=== PATIENT | male | born 1970 | race Two or more races ===

== ENCOUNTER 2023-01-08 16:40 | Inpatient (IN) | payer MEDICARE, MEDICAID ==
[2023-01-08 18:17] LABS: Amphetamine Screen,Urine Not Detected (NotDetected); Barbiturate Screen,Urine Not Detected (NotDetected); Benzodiazepines Screen,Urine Not Detected (NotDetected); Cocaine Screen,Urine Not Detected (NotDetected); Methadone Screen, Urine Not Detected (NotDetected); Opiate Screen,Urine Not Detected (NotDetected); Oxycodone Screen, Urine Not Detected (NotDetected); Phencyclidine Screen,Urine Not Detected (NotDetected); Tricyclic Antidepressant,Urine Not Detected (NotDetected); Urn Cannabinoid Scrn Detected (NotDetected)
--- NOTE | 2023-01-08 19:05 | ED ---
General Adult HPI - General Chief complaint: Anxiety Stated complaint: Mental health Time Seen by Provider: 01/08/23 16:51 Source: patient Mode of arrival: ambulatory Limitations: no limitations - History of Present Illness Initial comments: 52-year-old male presenting with chief complaint of anxiety. Patient very clearly has delusional thinking. He tells me that he has a tolerance and a member of a royal family. 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 He denies any suicidal or homicidal ideation. He is generally well-appearing and showing no signs of distress. - Related Data Allergies Allergy/AdvReac Type Severity Reaction Status Date / Time No Known Allergies Allergy Verified 01/08/23 16:43 Review of Systems ROS Statement: Those systems with pertinent positive or pertinent negative responses have been documented in the HPI. ROS Other: All systems not noted in ROS Statement are negative. Past Medical History Past Medical History: Asthma History of Any Multi-Drug Resistant Organisms: None Reported Past Surgical History: No Surgical Hx Reported Past Psychological History: Anxiety, Depression Smoking Status: Current every day smoker Past Alcohol Use History: None Reported Past Drug Use History: None Reported General Exam Limitations: no limitations General appearance: alert, in no apparent distress Head exam: Present: atraumatic, normocephalic, normal inspection Eye exam: Present: normal appearance, EOMI Neck exam: Present: normal inspection, full ROM Respiratory exam: Present: normal lung sounds bilaterally. Absent: respiratory distress, wheezes, rales, rhonchi, stridor Cardiovascular Exam: Present: regular rate, normal rhythm, normal heart sounds. Absent: systolic murmur, diastolic murmur, rubs, gallop, clicks Neurological exam: Present: alert, oriented X3 Psychiatric exam: Absent: homicidal ideation, suicidal ideation Expanded Focused psych exam: Present: delusional, flight of ideas Skin exam: Present: warm, dry, intact, normal color. Absent: rash Course Vital Signs 01/08/23 01/08/23 01/08/23 16:43 17:17 18:23 Temperature 98.3 F 97.5 F L 98.4 F Pulse Rate 121 H 101 H 92 Respiratory 18 18 18 Rate Blood Pressure 151/90 128/73 128/70 O2 Sat by Pulse 97 97 97 Oximetry Medical Decision Making - Medical Decision Making Was pt. sent in by a medical professional or institution ([facility], [facility], urgent care, hospital, or correction...) When possible be specific @ -No Did you speak to anyone other than the patient for history (EMS, parent, family, police, friend...)? What history was obtained from this source @ -No Did you review nursing and triage notes (agree or disagree)? Why? @ -I reviewed and agree with nursing and triage notes Were old charts reviewed (outside hosp., previous admission, EMS record, old EKG, old radiological studies, urgent care reports/EKG's, correction records)? Report findings @ -No old charts were reviewed Differential Diagnosis (chest pain, altered mental status, abdominal pain women, abdominal pain men, vaginal bleeding, weakness, fever, dyspnea, syncope, headache, dizziness, GI bleed, back pain, seizure, CVA, palpatations, mental health, musculoskeletal)? @ -Differential Mental Health Depression, anxiety, bipolar, psychosis, schizophrenia, borderline personality, situational depression, adjustment disorder, behavioral disorder, brain tumor, malingering, substance abuse, encephalopathy, medication reaction, dementia, h ypothyroidism, degenerative neurologic disorder, lupus.... This is not meant to be all-inclusive list EKG interpreted by me (3pts min.). @ -As above X-rays interpreted by me (1pt min.). @ -None done CT interpreted by me (1pt min.). @ -None done U/S interpreted by me (1pt. min.). @ -None done What testing was considered but not performed or refused? (CT, X-rays, U/S, labs)? Why? @ -None What meds were considered but not given or refused? Why? @ -None Did you discuss the management of the patient with other professionals (professionals i.e. [facility], [facility], lab, RT, psych nurse, case management social worker, material coordinator, teacher, community development officer, adult protective caseworker)? Give summary @ -No Was smoking cessation discussed for >3mins.? @ -No Was critical care preformed (if so, how long)? @ -No Were there social determinants of health that impacted care today? How? (H omelessness, low income, unemployed, alcoholism, drug addiction, transportation, low edu. Level, literacy, decrease access to med. care, shelter, rehab)? @ -No Was there de-escalation of care discussed even if they declined (Discuss DNR or withdrawal of care, Hospice)? DNR status @ -No What co-morbidities impacted this encounter? (DM, HTN, Smoking, COPD, CAD, Cancer, CVA, ARF, Chemo, Hep., AIDS, mental health diagnosis, sleep apnea, morbid obesity)? @ -None Was patient admitted / discharged? Hospital course, mention meds given and route, prescriptions, significant lab abnormalities, going to OR and other pertinent info. @ -52-year-old male presenting with chief complaint of anxiety. While obtaining the history and physical exam patient is very clearly delusional. He is evaluated by EPS who determined that he meets criteria for inpatient treatment. My attending is Dr. Lorenzo Undiagnosed new problem with uncertain prognosis? @ -No Drug Therapy requiring intensive monitoring for toxicity (Heparin, Nitro, Insulin, Cardizem)? @ -No Were any procedures done? @ -No Diagnosis/symptom? @ -Delusional thinking Acute, or Chronic, or Acute on Chronic? @ -Acute Uncomplicated (without systemic symptoms) or Complicated (systemic symptoms)? @ -Complicated Side effects of treatment? @ -No Exacerbation, Progression, or Severe Exacerbation? @ -No Poses a threat to life or bodily function? How? (Chest pain, [place], [place], pneumonia, PE, COPD, DKA, ARF, appy, cholecystitis, CVA, Diverticulitis, Homicidal, Suicidal, threat to staff... and all critical care pts) @ -Yes - Lab Data Lab Results 01/08/23 Range/Units 17:15 Urine Opiates Screen Not Detected (NotDetected) Ur Oxycodone Screen Not Detected (NotDetected) Urine Methadone Screen Not Detected (NotDetected) Ur Propoxyphene Screen Not Detected (NotDetected) Ur Barbiturates Screen Not Detected (NotDetected) U Tricyclic Antidepress Not Detected (NotDetected) Ur Phencyclidine Scrn Not Detected (NotDetected) Ur Amphetamines Screen Not Detected (NotDetected) U Methamphetamines Scrn Not Detected (NotDetected) U Benzodiazepines Scrn Not Detected (NotDetected) Urine Cocaine Screen Not Detected (NotDetected) U Marijuana (THC) Screen Detected H (NotDetected) Disposition Clinical Impression: Delusion, Hallucinations Disposition: ADMITTED IP TO THIS HOSP Condition: Stable Instructions (If sedation given, give patient instructions): Generalized Anxiety Disorder (ED) Referrals: None,Stated [Primary Care Provider] - 1-2 days Time of Disposition: 19:04
[2023-01-08 20:06] LABS: Appearance,Urine Turbid (Clear); Bilirubin,Urine Negative (Negative); Blood,Urine Negative (Negative); Color,Urine Yellow; Glucose,Urine (UA) Negative (Negative); Ketones,Urine Negative (Negative); Leukocyte Esterase,Urine Moderate (Negative); Nitrite,Urine Negative (Negative); Protein,Urine Trace (Negative); Specific Gravity,Urine 1.033 (1.001-1.035)
[2023-01-08 20:08] LABS: RBC,Urine 0 /hpf (0-5); WBC,Urine 3 /hpf (0-5)
[2023-01-08] MEDS ORDERED: NICOTINE 21MG/24HR PATCH TRANSDERM STA (20:15)
[2023-01-08 20:33] LABS: HCT 41.4 % (39.0-53.0); HGB 14.2 gm/dL (13.0-17.5); MCH 30.7 pg (25.0-35.0); MCHC 34.4 g/dL (31.0-37.0); MCV 89.3 fL (80.0-100.0); Mean Platelet Volume 10.3; Platelet Count 211 k/uL (150-450); RBC 4.64 m/uL (4.30-5.90); RDW 14.7 % (11.5-15.5)
[2023-01-08 21:11] LABS: ALT 17 U/L (4-49); AST 20 U/L (17-59); African American GFR (CKD) >90 (>60 ml/min/1.73 sqM); Albumin 3.8 g/dL (3.5-5.0); Alkaline Phosphatase 101 U/L (38-126); Anion Gap 9 mmol/L; Blood Urea Nitrogen 18 mg/dL (9-20); Carbon Dioxide 24 mmol/L (22-30); Chloride 106 mmol/L (98-107); Glucose 120 mg/dL (74-99); Non-African American GFR(CKD) 90 (>60 ml/min/1.73 sqM); Potassium 4.2 mmol/L (3.5-5.1); Sodium 139 mmol/L (137-145); Total Bilirubin 0.3 mg/dL (0.2-1.3); Total Protein 6.7 g/dL (6.3-8.2)
[2023-01-09] MEDS ORDERED: ACETAMINOPHEN TAB 325 MG TAB PO PRN (14:01)
[2023-01-09] MEDS ORDERED: LORazepam 1 MG TAB PO PRN (14:01)
[2023-01-09] MEDS ORDERED: haloperidoL 5 MG TAB PO PRN (14:01)
[2023-01-09] MEDS ORDERED: MAGNESIUM HYDROXIDE 2,400 MG/30 ML CUP PO PRN (14:01)
[2023-01-09] MEDS ORDERED: MAG HYDROX/AL HYDROX/SIMETH 30 ML CUP PO PRN (14:01)
[2023-01-09] MEDS ORDERED: HALOPERIDOL LACTATE 5 MG/ML 1 ML VIAL IM PRN (14:59)
[2023-01-09] MEDS ORDERED: LORazepam 2 MG/ML INJ IM PRN (15:00)
[2023-01-09] MEDS: BACITRACIN OINT 1 EACH PACKET TOPICAL SCH ×2 (18:44→20:34)
[2023-01-09] MEDS ORDERED: risperiDONE 1 MG TAB PO SCH (21:00)
--- NOTE | 2023-01-10 05:16 | P.CONS ---
History of Present Illness - Reason for Consult Consult date: 01/10/23 - History of Present Illness The patient is a 52-year-old homeless male who had presented to the emergency room with psychosis. The patient reportedly making statements that he was related to Juan Hurley and that he was a member of the family working on his knee problem. He was admitted to the mental health unit where he was seen and evaluated. Patient reports feeling well at the time of interview and had no physical complaints. He reports smoking 1 pack of cigarettes daily but denied substance or alcohol use. Denied experiencing chest discomfort or shortness of, fever, chills, cough, nausea, vomiting, abdominal pain, diarrhea. Review of systems: Pertinent positives and negatives as discussed in HPI, a complete review of systems was performed and all other systems are negative. Physical examination: General: non toxic, no distress, appears at stated age, normal weight Derm: no unusual rashes/lesions, no unusual ecchymoses, warm, dry Head: atraumatic, normocephalic, symmetric Eyes: EOMI, no lid lag, anicteric sclera ENT: Nose and ears atraumatic, no thrush, no pharyngeal erythema Neck: trachea midline, supple Mouth: no lip lesion, mucus membranes moist Cardiovascular: S1S2 reg, no murmur, no edema Lungs: CTA bilateral, no rhonchi, no rales , no accessory muscle use Abdominal: soft, nontender to palpation, no guarding Ext: no gross muscle atrophy, no contractures, Neuro: No gross focal neuro deficits noted Psych: Alert, oriented, appropriate affect Assessment: Marijuana abuse Tobacco abuse Psychosis Imaging: None performed Data Review: Laboratory evaluation revealed urine tox positive for marijuana Plan: Advised on importance of cessation Defer management of psychosis to primary psychiatry service Thank you for allowing us to participate in the care of this patient. We will follow peripherally. Do not hesitate to contact us with questions. Someone can be reached from the [facility] hospitalist group at all hours of the day at [phone]. Past Medical History Past Medical History: Asthma History of Any Multi-Drug Resistant Organisms: None Reported Past Surgical History: No Surgical Hx Reported Past Psychological History: Anxiety, Depression Smoking Status: Current every day smoker Past Alcohol Use History: None Reported Past Drug Use History: None Reported Medications and Allergies Home Medications Medication Instructions Recorded Confirmed Type Sertraline [Zoloft] 100 mg PO DAILY 01/08/23 01/08/23 History risperiDONE 3 mg PO DAILY 01/08/23 01/08/23 History Allergies Allergy/AdvReac Type Severity Reaction Status Date / Time No Known Allergies Allergy Verified 01/08/23 20:16 Physical Exam Vitals: Vital Signs Temp Pulse Pulse Resp BP BP Pulse Ox 01/10/23 01:35 97.1 F L 75 12 118/72 01/09/23 15:01 97.7 F 81 16 133/64 96 01/09/23 08:11 98.2 F 81 16 114/71 98 Intake and Output 01/09/23 01/09/23 01/10/23 14:59 22:59 06:59 Other: Weight 61.235 kg Results CBC & Chem 7: 01/08/23 19:58 01/08/23 19:58
[2023-01-10] MEDS: SERTRALINE 100 MG TAB PO SCH (08:36)
[2023-01-10] MEDS: BACITRACIN OINT 1 EACH PACKET TOPICAL SCH ×2 (08:36→20:06)
[2023-01-10] MEDS: NICOTINE 21MG/24HR PATCH TRANSDERM SCH (08:36)
[2023-01-10 09:48] LABS: Chol/HDL Ratio 4.75 Ratio; LDL Cholesterol,Calculated 113.3 mg/dL (0.0-131.0)
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
[2023-01-10 13:19] VITALS: BMI 21.1
[2023-01-10] MEDS: MIRTAZAPINE 15 MG TAB PO SCH (20:06)
[2023-01-10] MEDS: PALIPERIDONE 3 MG TAB.ER.24 PO SCH (20:06)
[2023-01-11] MEDS: NICOTINE 21MG/24HR PATCH TRANSDERM SCH (09:54)
[2023-01-11] MEDS: BACITRACIN OINT 1 EACH PACKET TOPICAL SCH ×2 (09:54→20:37)
[2023-01-11] MEDS: SERTRALINE 100 MG TAB PO SCH (10:04)
--- NOTE | 2023-01-11 11:31 | P.PN ---
Progress Note - Text Progress Note Date: 01/11/23 Interval History: Patient was seen wandering the hallways and was directable and agreeable to speak with development writer in the office. [Patient claims that his medication is 'really helping him" and that he slept very well at night. Patient claims that he is eating well, and has been going to groups..Patient admits to needing help with his mental stability. No complaints with adverse reactions of medication. At this time patient denies any suicidal or homical ideations, intent or plan. Patient denies any auditory, visual hallucinations and denies any paranoia or delusions. Patient denies any side effects from the medications and has been compliant with meds. we spoke about his senior trial attorney coming today to do the deferral with him. Mental Status Exam: General Appearance: Patient appears to be short in stature, older than stated age, is alert, directable, and attempts to cooperate. Patient appears to have poor hygiene and grooming, improving.. Behavior: Patient is calmly seated without any agitated behavior, cooperative. Timid. mildly improving. Speech: Patient's speech is fluent and nonpressured. Mood/Affect: Mood is improving mildly, patient claims that he feels good,, affect is congruent and constricted. mildly improving Suicidality/Homicidality: Patient denies having any suicidal or homicidal ideation intent or plan. Perceptions: Patient denies any visual hallucinations and denies any auditory hallucinations Though content/process: There is no evidence of any delusional thought content and thought process is linear and goal-directed. Rambles at times, mildly improving. Memory and concentration: AOX3, grossly intact for the purposes of this session Judgment and insight: Poor, improving Assessment Schizophrenia Intellectual disability Cannabis use disorder Nicotine dependence Plan: -Patient continues to meet criteria for inpatient psychiatric admission for symptom stabilization and safety. Patient has not signed adult voluntary form and, medication consent and is placed in patient's chart. A second certification was completed and along with petition has been filed for court. Social Problems Specialist will meet with patient today, 01/11, to defer. -Medications: Invega 3mg qhs for psychosis/delusions, Remeron 15mg qhs insomnia and mood, Zoloft 100mg qd for anxiety and mood -When necessary Ativan and Haldol for agitation/aggression. -NRT - [nicotine patch]-Patient was counselled on substance abuse and desired to cut back on use -Patient was informed of the risks, benefits and side effects of the medication and patient verbally consented to taking the medications. Patient signed med consent form and was placed in chart -SW on board for discharge planning. Encouraged the patient to participate in milieu. Currently awaiting deferral with senior trial attorney today. Likely discharge Monday, 01/13 if patient continues to improve.
[2023-01-11] MEDS: PALIPERIDONE 3 MG TAB.ER.24 PO SCH (20:37)
[2023-01-11] MEDS: MIRTAZAPINE 15 MG TAB PO SCH (20:37)
[2023-01-12] MEDS: NICOTINE 21MG/24HR PATCH TRANSDERM SCH (08:32)
[2023-01-12] MEDS: BACITRACIN OINT 1 EACH PACKET TOPICAL SCH ×2 (08:32→20:17)
[2023-01-12] MEDS: SERTRALINE 100 MG TAB PO SCH (08:33)
--- NOTE | 2023-01-12 10:05 | P.PN ---
Progress Note - Text Progress Note Date: 01/12/23 Interval History: Patient was seen wandering the hallways and was directable and agreeable to speak with tag writer in the office. Patient claims that his medication is 'really helping him" and that he slept "wonderful". Patient claims that he is eating well, and has been going to groups. He feels talking to other patients are really good for him. Patient no longer feels afraid, and is feeling comfortable. No complaints with adverse reactions of medication. At this time patient denies any suicidal or homical ideations, intent or plan. Patient denies any auditory, visual hallucinations and denies any paranoia or delusions. Patient denies any side effects from the medications and has been compliant with meds. Patient deferred with his civil rights attorney. Mental Status Exam: General Appearance: Patient appears to be short in stature, older than stated age, is alert, directable, and attempts to cooperate. Patient appears to have improving hygiene and grooming. Behavior: Patient is calmly seated without any agitated behavior, timid, cooperative.mildly improving. Speech: Patient's speech is fluent and nonpressured. Mood/Affect: Mood is improving mildly, patient claims that he feels good,, affect is congruent and constricted. improving Suicidality/Homicidality: Patient denies having any suicidal or homicidal ideation intent or plan. Perceptions: Patient denies any visual hallucinations and denies any auditory hallucinations Though content/process: There is no evidence of any delusional thought content and thought process is linear and goal-directed. mildly improving. Memory and concentration: AOX3, grossly intact for the purposes of this session Judgment and insight: Poor, improving Assessment Schizophrenia Intellectual disability Cannabis use disorder Nicotine dependence Plan: -Patient continues to meet criteria for inpatient psychiatric admission for symptom stabilization and safety. Patient has not signed adult voluntary form and, medication consent and is placed in patient's chart. A second certification was completed and along with petition has been filed for court. Patient deferred with his civil rights attorney, 01/11 -Medications: Invega 3mg qhs for psychosis/delusions, Remeron 15mg qhs insomnia and mood, decrease Zoloft 50mg qd for anxiety and mood -When necessary Ativan and Haldol for agitation/aggression. -NRT - [nicotine patch]-Patient was counselled on substance abuse and desired to cut back on use -Patient was informed of the risks, benefits and side effects of the medication and patient verbally consented to taking the medications. Patient signed med consent form and was placed in chart -SW on board for discharge planning. Encouraged the patient to participate in milieu. Patient signed a deferral with his civil rights attorney 01/11. Likely discharge Monday, 01/13 if patient continues to improve.
[2023-01-12] MEDS: PALIPERIDONE 3 MG TAB.ER.24 PO SCH (20:17)
[2023-01-12] MEDS: MIRTAZAPINE 15 MG TAB PO SCH (20:17)
[2023-01-13 06:39] VITALS: BP 118/68; PULSE 77; RESP 13; TEMP 97.4
[2023-01-13] MEDS: BACITRACIN OINT 1 EACH PACKET TOPICAL SCH (08:24)
[2023-01-13] MEDS: NICOTINE 21MG/24HR PATCH TRANSDERM SCH (08:24)
[2023-01-13] MEDS ORDERED: SERTRALINE 50 MG TAB PO SCH (09:00)
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
== END 2023-01-13 12:21 | disposition home or self-care (01) | DRG 885 ==
LOC: EC 16:40 → 3MHU 01-09 13:59
PROVIDERS: ADMIT Psychiatry & Neurology Psychiatry; ATTEND Psychiatry & Neurology Psychiatry
DX: F20.9 Schizophrenia, unspecified (principal); F79 Unspecified intellectual disabilities; F12.10 Cannabis abuse, uncomplicated; Z11.52 Encounter for screening for COVID-19; Z28.310 Unvaccinated for COVID-19; G47.00 Insomnia, unspecified; F41.9 Anxiety disorder, unspecified; F32.A Depression, unspecified; F17.210 Nicotine dependence, cigarettes, uncomplicated; Z91.148 Patient's other noncompliance with medication regimen for other reason; Z91.199 Patient's noncompliance with other medical treatment and regimen due to unspecified reason; Z71.6 Tobacco abuse counseling; Z79.899 Other long term (current) drug therapy; T74.21XS Adult sexual abuse, confirmed, sequela; Z81.8 Family history of other mental and behavioral disorders
CPT/HCPCS: 36415; 80053; 80061; 80306; 81001; 82075; 83036; 84443; 85027; 87635; 99285

== ENCOUNTER 2023-01-19 13:58 | Emergency (ER) | payer MEDICARE, OTHER ==
[2023-01-19 14:12] VITALS: TEMP 98.1
--- NOTE | 2023-01-19 15:38 | ED ---
General Adult HPI - General Chief complaint: Altered Mental Status Stated complaint: AMS Time Seen by Provider: 01/19/23 13:59 Source: patient, EMS, RN notes reviewed, old records reviewed Mode of arrival: EMS Limitations: no limitations, altered mental status - History of Present Illness Initial comments: 52-year-old male presenting for mental health evaluation. Patient stating that he is stressed and anxious. He states that he is currently living with his sister. He states that he is scheduled to perform in a and believes this is the cause of the stress. He denies suicidal or homicidal thoughts. He did report to EMS that he feels somewhat confused at times but he is alert and oriented to time my evaluation.a - Related Data Previous Rx's Medication Instructions Recorded Mirtazapine [Remeron] 15 mg PO HS 30 Days #30 tab 01/13/23 Nicotine 21Mg/24Hr Patch [Habitrol] 1 patch TRANSDERM DAILY 14 Days 01/13/23 #14 patch Paliperidone [Invega] 3 mg PO HS 30 Days #30 tab 01/13/23 Sertraline [Zoloft] 50 mg PO DAILY 30 Days #30 tab 01/13/23 Allergies Allergy/AdvReac Type Severity Reaction Status Date / Time No Known Allergies Allergy Verified 01/19/23 14:11 Review of Systems ROS Statement: Those systems with pertinent positive or pertinent negative responses have been documented in the HPI. ROS Other: All systems not noted in ROS Statement are negative. Past Medical History Past Medical History: Asthma History of Any Multi-Drug Resistant Organisms: None Reported Past Surgical History: No Surgical Hx Reported Past Psychological History: Anxiety, Depression Smoking Status: Current every day smoker Past Alcohol Use History: None Reported Past Drug Use History: None Reported General Exam Limitations: no limitations, altered mental status General appearance: alert, anxious Head exam: Present: atraumatic, normocephalic Eye exam: Present: normal appearance, PERRL ENT exam: Present: normal exam Respiratory exam: Present: normal lung sounds bilaterally. Absent: respiratory distress, wheezes Cardiovascular Exam: Present: regular rate, normal rhythm GI/Abdominal exam: Present: soft. Absent: distended Extremities exam: Present: normal inspection Neurological exam: Present: alert, oriented X3, CN II-XII intact. Absent: motor sensory deficit Psychiatric exam: Present: depressed, anxious Skin exam: Present: warm, dry, intact Course Vital Signs 01/19/23 01/19/23 14:03 16:34 Temperature 98.1 F Pulse Rate 100 82 Respiratory 18 20 Rate Blood Pressure 123/71 116/74 O2 Sat by Pulse 97 99 Oximetry Medical Decision Making - Medical Decision Making Was pt. sent in by a medical professional or institution (, DEB, AUTOMOTIVE SERVICE MANAGEMENT TEACHER, urgent care, hospital, or half-way...) When possible be specific @ -No Did you speak to anyone other than the patient for history (EMS, parent, family, police, friend...)? What history was obtained from this source @ -No Did you review nursing and triage notes (agree or disagree)? Why? @ -I reviewed and agree with nursing and triage notes Were old charts reviewed (outside hosp., previous admission, EMS record, old EKG, old radiological studies, urgent care reports/EKG's, half-way records)? Report findings @ -No old charts were reviewed Differential Diagnosis (chest pain, altered mental status, abdominal pain women, abdominal pain men, vaginal bleeding, weakness, fever, dyspnea, syncope, headache, dizziness, GI bleed, back pain, seizure, CVA, palpatations, mental health, musculoskeletal)? @ -[Differential Mental Health Depression, anxiety, bipolar, psychosis, schizophrenia, borderline personality, situational depression, adjustment disorder, behavioral disorder, brain tumor, malingering, substance abuse, encephalopathy, medication reaction, dementia, hypothyroidism, degenerative neurologic disorder, lupus.... This is not meant to be all-inclusive list EKG interpreted by me (3pts min.). @ -As above X-rays interpreted by me (1pt min.). @ -None done CT interpreted by me (1pt min.). @ -None done U/S interpreted by me (1pt. min.). @ -None done What testing was considered but not performed or refused? (CT, X-rays, U/S, labs)? Why? @ -None What meds were considered but not given or refused? Why? @ -None Did you discuss the management of the patient with other professionals (professionals i.e. DEB Thurman, AUTOMOTIVE SERVICE MANAGEMENT TEACHER, lab, RT, psych nurse, social worker school, android ui developer, teacher, loans officer, comp field case manager)? Give summary @ -No Was smoking cessation discussed for >3mins.? @ -No Was critical care preformed (if so, how long)? @ -No Were there social determinants of health that impacted care today? How? (Homelessness, low income, unemployed, alcoholism, drug addiction, transportation, low edu. Level, literacy, decrease access to med. care, retirement, rehab)? @ -No Was there de-escalation of care discussed even if they declined (Discuss DNR or withdrawal of care, Hospice)? DNR status @ -No What co-morbidities impacted this encounter? (DM, HTN, Smoking, COPD, CAD, Cancer, CVA, ARF, Chemo, Hep., AIDS, mental health diagnosis, sleep apnea, morbid obesity)? @ -[Depression, psychosis Was patient admitted / discharged? Hospital course, mention meds given and route, prescriptions, significant lab abnormalities, going to OR and other pertinent info. @ 52-year-old male with depression, stress reaction. Patient is delusional, and here for mental health evaluation. He was medically cleared and evaluated by EPS. Confirmed that this is his baseline. He is not suicidal or homicidal. He has follow up with [facility]. He will be discharged back to his friend who he currently resides breath. Undiagnosed new problem with uncertain prognosis? @ -No Drug Therapy requiring intensive monitoring for toxicity (Heparin, Nitro, Insulin, Cardizem)? @ -No Were any procedures done? @ -No Diagnosis/symptom? @ -Depression Acute, or Chronic, or Acute on Chronic? @ chronic Uncomplicated (without systemic symptoms) or Complicated (systemic symptoms)? @ -default Side effects of treatment? @ -No Exacerbation, Progression, or Severe Exacerbation? @ -No Poses a threat to life or bodily function? How? (Chest pain, [place], NH, pneumonia, PE, COPD, DKA, ARF, appy, cholecystitis, CVA, Diverticulitis, Homicidal, Suicidal, threat to staff... and all critical care pts) @ -No Disposition Clinical Impression: Delusion, Depression Disposition: HOME SELF-CARE Condition: Fair Instructions (If sedation given, give patient instructions): Depression (ED) Additional Instructions: Follow up with [facility] Is patient prescribed a controlled substance at d/c from ED?: No Referrals: None,Stated [Primary Care Provider] - 1-2 days Time of Disposition: 16:22
[2023-01-19 16:49] VITALS: BP 116/74; PULSE 82; RESP 20
== END 2023-01-19 16:35 | disposition home or self-care (01) ==
LOC: EC 13:58
DX: F22 Delusional disorders (principal); F32.A Depression, unspecified; F17.200 Nicotine dependence, unspecified, uncomplicated; J45.909 Unspecified asthma, uncomplicated; Z86.59 Personal history of other mental and behavioral disorders
CPT/HCPCS: 99285

== ENCOUNTER 2023-06-29 14:48 | Emergency (ER) | payer MEDICARE, OTHER ==
[2023-06-29 15:56] VITALS: TEMP 97.8
--- NOTE | 2023-06-29 16:22 | ED ---
Neck Injury/Pain HPI - General Source: RN notes reviewed Mode of arrival: ambulatory Limitations: no limitations <Brianna Lovett - Last Filed: 06/29/23 16:21> - General Source: patient, RN notes reviewed, old records reviewed <Denny Raines - Last Filed: 06/29/23 22:41> - General Chief Complaint: Neck Pain/Injury Stated Complaint: lump in throat Time Seen by Provider: 06/29/23 16:21 - History of Present Illness Initial Comments: Quick [id number] male presenting with left-sided neck swelling x 1 week. States the swelling is intermittent. States he is having difficulty and pain with swallowing. Denies fevers, URI symptoms. (Brianna Lovett) Patient is a 52-year-old male who presents emergency department complaining of neck swelling. Is located on the left inferior mandible. Denies any fevers or chills. Denies any difficulty with swallowing, denies any difficulty with breathing. Has been on and off for the past week. Denies any chest pain or shortness of breath. Denies any abdominal pain or nausea or vomiting. Presents for further evaluation at this time. No known sick contacts. No known injuries. (Denny Raines) - Related Data Previous Rx's Medication Instructions Recorded Mirtazapine [Remeron] 15 mg PO HS 30 Days #30 tab 01/13/23 Nicotine 21Mg/24Hr Patch [Habitrol] 1 patch TRANSDERM DAILY 14 Days 01/13/23 #14 patch Paliperidone [Invega] 3 mg PO HS 30 Days #30 tab 01/13/23 Sertraline [Zoloft] 50 mg PO DAILY 30 Days #30 tab 01/13/23 Amoxic-Pot Clav 875-125Mg 1 tab PO Q12HR 10 Days #20 tab 06/29/23 [Augmentin 875-125] predniSONE [Deltasone] 40 mg PO DAILY 5 Days #10 tab 06/29/23 Allergies Allergy/AdvReac Type Severity Reaction Status Date / Time No Known Allergies Allergy Verified 06/29/23 15:32 Review of Systems ROS Other: All systems not noted in ROS Statement are negative. <Brianna Lovett - Last Filed: 06/29/23 16:21> ROS Other: All systems not noted in ROS Statement are negative. <Denny Raines - Last Filed: 06/29/23 22:41> ROS Statement: Those systems with pertinent positive or pertinent negative responses have been documented in the HPI. Review of Systems: CONST: Denies fever EYES: Denies blurry vision ENT: Endorses neck swelling C/V: Denies Chest pain RESP: Denies shortness of breath GI: Denies abdominal pain : Denies dysuria SKIN: Denies rash. MSK: Denies joint pain. NEURO: Denies headache (Denny Raines) Past Medical History Past Medical History: Asthma History of Any Multi-Drug Resistant Organisms: None Reported Past Surgical History: No Surgical Hx Reported Past Psychological History: Anxiety, Depression Smoking Status: Current every day smoker Past Alcohol Use History: None Reported Past Drug Use History: Marijuana <Brianna Lovett - Last Filed: 06/29/23 16:21> General Exam Limitations: no limitations <Brianna Lovett - Last Filed: 06/29/23 16:21> <Denny Raines - Last Filed: 06/29/23 22:41> - General Exam Comments Initial Comments: Visual Physical Exam Vital signs reviewed General: Well-appearing, nontoxic, no acute distress. Head: Normocephalic, atraumatic Eyes: PERRLA, EOMI ENT: Airway patent Chest: Nonlabored breathing Skin: No visual rash, normal skin tone Neuro: Alert and oriented 3 Musculoskeletal: No gross abnormalities (Brianna Lovett) General: Appears in no acute distress. HEAD: Normal with no signs of head trauma. EYES: PERRLA, EOMI, conjunctiva normal, no discharge. ENT: Submandibular swelling which could be a lymph node or possibly submandibular gland. No fluctuance or induration. Intraorally, no obvious findings. No pus at the salivary ducts. No stridor auscultated. Trachea is midline. It is midline. No floor the mouth edema. No tongue edema. RESPIRATORY: Clear breath sounds bilaterally. C/V: Regular rate and rhythm. S1 and S2 auscultated. ABD: Abd is soft, nontender, nondistended EXT: Normal range of motion, no obvious deformity SKIN: No rashes or lesions observed on exposed skin. NEURO: Alert and oriented x 4. (Denny Raines) Course Vital Signs 06/29/23 06/29/23 06/29/23 15:29 18:48 20:43 Temperature 97.8 F Pulse Rate 89 70 84 Respiratory 16 20 18 Rate Blood Pressure 120/68 141/87 126/83 O2 Sat by Pulse 96 97 96 Oximetry Medical Decision Making <Brianna Lovett - Last Filed: 06/29/23 16:21> - Lab Data Result diagrams: 06/29/23 18:40 06/29/23 18:40 <Denny Raines - Last Filed: 06/29/23 22:41> - Medical Decision Making I completed the quick note portion of this chart signed Brianna Lovett PA-C (Brianna Lovett) Was pt. sent in by a medical professional or institution (, PA, SOIL SAMPLER, urgent care, hospital, or alf...) When possible be specific @ -No Did you speak to anyone other than the patient for history (EMS, parent, family, police, friend...)? What history was obtained from this source @ -No Did you review nursing and triage notes (agree or disagree)? Why? @ -I reviewed and agree with nursing and triage notes Were old charts reviewed (outside hosp., previous admission, EMS record, old EKG, old radiological studies, urgent care reports/EKG's, alf records)? Report findings @ -No old charts were reviewed Differential Diagnosis (chest pain, altered mental status, abdominal pain women, abdominal pain men, vaginal bleeding, weakness, fever, dyspnea, syncope, headache, dizziness, GI bleed, back pain, seizure, CVA, palpatations, mental health, musculoskeletal)? @ -Sialoadenitis, Osvaldo's angina, lymphedema. This list is not all inclusive. EKG interpreted by me (3pts min.). @ -None X-rays interpreted by me (1pt min.). @ -Neck x-ray obtained in triage remarkable for soft tissue swelling. Recommend CT imaging. CT interpreted by me (1pt min.). @ -CT of the neck with contrast reveals sialoadenitis of the left submandibular gland. U/S interpreted by me (1pt. min.). @ -None done What testing was considered but not performed or refused? (CT, X-rays, U/S, labs)? Why? @ -None What meds were considered but not given or refused? Why? @ -None Did you discuss the management of the patient with other professionals (professionals i.e. , PA, SOIL SAMPLER, lab, RT, psych nurse, addiction social worker, manager psychiatry, teacher, public affairs officer, case planner)? Give summary @ -No Was smoking cessation discussed for >3mins.? @ -No Was critical care preformed (if so, how long)? @ -No Were there social determinants of health that impacted care today? How? (Homelessness, low income, unemployed, alcoholism, drug addiction, transportation, low edu. Level, literacy, decrease access to med. care, custodial, rehab)? @ -No Was there de-escalation of care discussed even if they declined (Discuss DNR or withdrawal of care, Hospice)? DNR status @ -No What co-morbidities impacted this encounter? (DM, HTN, Smoking, COPD, CAD, Cancer, CVA, ARF, Chemo, Hep., AIDS, mental health diagnosis, sleep apnea, morbid obesity)? @ -None Was patient admitted / discharged? Hospital course, mention meds given and route, prescriptions, significant lab abnormalities, going to OR and other pertinent info. @ -Patient presents with neck swelling. Workup so far consisted of x-ray which showed swelling. Recommended CT imaging. I updated the patient who is in agreement this plan. Will be given IV steroids as well as IV fluids. Basic labs will be obtained. He was in agreement this plan. No concern for Jaylan's angina at this time. Airway is controlled. Is able to tolerate oral secretions and swallow without difficulty. No difficulty breathing. No stridor auscultated. He was in agreement this plan. CT shows submandibular sialoadenitis. Labs are all within acceptable limits. I updated the patient. He will be discharged home at this time. We discussed how he should use sialagogues, and I will prescribe him prednisone as well as antibiotics for home. He will be given dose of Augmentin prior to discharge. He was in agreement this plan. Strict return precautions discussed. I will provide the patient with a prescription for Augmentin, prednisone. I instructed the patient to follow up with their PCP in the next 1-3 days.. I explained that the patient should return to the emergency department if they experience any worsening symptoms. Strict return precautions were discussed with the patient. The patient expressed understanding of these instructions. I answered all questions that the patient had. The patient was discharged home in good condition with their prescriptions and follow up information. Undiagnosed new problem with uncertain prognosis? @ -No Drug Therapy requiring intensive monitoring for toxicity (Heparin, Nitro, Insulin, Cardizem)? @ -No Were any procedures done? @ -No Diagnosis/symptom? @ -Submandibular sialoadenitis Acute, or Chronic, or Acute on Chronic? @ -Acute Uncomplicated (without systemic symptoms) or Complicated (systemic symptoms)? @ -Complicated Side effects of treatment? @ -No Exacerbation, Progression, or Severe Exacerbation? @ -No Poses a threat to life or bodily function? How? (Chest pain, USA, [place], pneumonia, PE, COPD, DKA, ARF, appy, cholecystitis, CVA, Diverticulitis, Homicidal, Suicidal, threat to staff... and all critical care pts) @ -Unlikely (Denny Raines) - Lab Data Lab Results 06/29/23 06/29/23 06/29/23 Range/Units 16:44 18:40 18:40 WBC 8.9 (3.8-10.6) k/uL RBC 4.78 (4.30-5.90) m/uL Hgb 14.1 (13.0-17.5) gm/dL Hct 42.6 (39.0-53.0) % MCV 89.3 (80.0-100.0) fL MCH 29.5 (25.0-35.0) pg MCHC 33.0 (31.0-37.0) g/dL RDW 15.3 (11.5-15.5) % Plt Count 272 (150-450) k/uL MPV 9.5 Neutrophils % 65 % Lymphocytes % 22 % Monocytes % 5 % Eosinophils % 5 % Basophils % 2 % Neutrophils # 5.8 (1.3-7.7) k/uL Lymphocytes # 2.0 (1.0-4.8) k/uL Monocytes # 0.4 (0-1.0) k/uL Eosinophils # 0.4 (0-0.7) k/uL Basophils # 0.1 (0-0.2) k/uL Sodium 139 (137-145) mmol/L Potassium 4.5 (3.5-5.1) mmol/L Chloride 108 H (98-107) mmol/L Carbon Dioxide 27 (22-30) mmol/L Anion Gap 4 mmol/L BUN 12 (9-20) mg/dL Creatinine 0.79 (0.66-1.25) mg/dL Est GFR (CKD-EPI)AfAm >90 (>60 ml/min/1.73 sqM) Est GFR (CKD-EPI)NonAf >90 (>60 ml/min/1.73 sqM) Glucose 101 H (74-99) mg/dL Calcium 8.9 (8.4-10.2) mg/dL Total Bilirubin 0.3 (0.2-1.3) mg/dL AST 29 (17-59) U/L ALT 26 (4-49) U/L Alkaline Phosphatase 135 H (38-126) U/L Total Protein 6.6 (6.3-8.2) g/dL Albumin 3.7 (3.5-5.0) g/dL Group A Strep (PCR) NOT DETECTED (Not Detectd) Disposition <Brianna Lovett - Last Filed: 06/29/23 16:21> Is patient prescribed a controlled substance at d/c from ED?: No Time of Disposition: 20:31 <Denny Raines - Last Filed: 06/29/23 22:41> Clinical Impression: Sialadenitis Disposition: HOME SELF-CARE Condition: Good Instructions (If sedation given, give patient instructions): Sialoadenitis (ED) Additional Instructions: suck on hard candies or cough drops. complete course of antibiotics and steroids. return if worsening symptoms such as difficulty breathing or swallowing food or worsening swelling. Prescriptions: Amoxic-Pot Clav 875-125Mg [Augmentin 875-125] 1 tab PO Q12HR 10 Days #20 tab predniSONE [Deltasone] 40 mg PO DAILY 5 Days #10 tab Referrals: Herson ePlletier MD [Primary Care Provider] - 1-2 days
--- NOTE | 2023-06-29 17:33 | XR ---
EXAMINATION TYPE: XR soft tissue neck DATE OF EXAM: 06/29/2023 4:56 PM CLINICAL INDICATION:Male, 52 years old with history of Left-sided neck swelling; PH[facility] COMPARISON: None TECHNIQUE: The soft tissues of the neck were imaged in frontal and lateral views. FINDINGS: The prevertebral soft tissues are unremarkable. There is no evidence of mass effect or tracheal devia tion. No evidence of subglottic narrowing. Airway is patent. Patient is edentulous. Epiglottis unrem arkable. No acute osseous abnormality demonstrated. Minimal degenerative change of the cervical spine. There is slight asymmetry in the appearance of the neck soft tissues on the frontal view, nonspecific could be due to left neck soft tissue swelling with underlying mass or adenopathy not excludable. If there is persistent concern, contrast CT neck would be the study of choice. IMPRESSION: As above.
[2023-06-29] MEDS: SODIUM CHLORIDE 0.9% 1,000 ML IV STA (18:43)
[2023-06-29] MEDS: DEXAMETHASONE SOD PHOSPHATE 10 MG/ML 1 ML VIAL IVP STA (18:43)
[2023-06-29 19:01] LABS: Basophils # (A) 0.1 k/uL (0-0.2); Basophils % (A) 2 %; Eosinophils # (A) 0.4 k/uL (0-0.7); Eosinophils % (A) 5 %; HCT 42.6 % (39.0-53.0); HGB 14.1 gm/dL (13.0-17.5); Lymphocytes % (A) 22 %; MCH 29.5 pg (25.0-35.0); MCV 89.3 fL (80.0-100.0); Mean Platelet Volume 9.5; Monocytes # (A) 0.4 k/uL (0-1.0); Monocytes % (A) 5 %; Neutrophils # (A) 5.8 k/uL (1.3-7.7); Neutrophils % (A) 65 %; Platelet Count 272 k/uL (150-450); RBC 4.78 m/uL (4.30-5.90); RDW 15.3 % (11.5-15.5); WBC 8.9 k/uL (3.8-10.6)
[2023-06-29 19:19] LABS: ALT 26 U/L (4-49); AST 29 U/L (17-59); African American GFR (CKD) >90 (>60 ml/min/1.73 sqM); Albumin 3.7 g/dL (3.5-5.0); Alkaline Phosphatase 135 U/L (38-126); Anion Gap 4 mmol/L; Blood Urea Nitrogen 12 mg/dL (9-20); Calcium 8.9 mg/dL (8.4-10.2); Carbon Dioxide 27 mmol/L (22-30); Chloride 108 mmol/L (98-107); Glucose 101 mg/dL (74-99); Non-African American GFR(CKD) >90 (>60 ml/min/1.73 sqM); Potassium 4.5 mmol/L (3.5-5.1); Sodium 139 mmol/L (137-145); Total Bilirubin 0.3 mg/dL (0.2-1.3); Total Protein 6.6 g/dL (6.3-8.2)
--- NOTE | 2023-06-29 19:22 | CT ---
EXAMINATION TYPE: CT soft tissue neck w con CT DLP: 181.7 mGycm, Automated exposure control for dose reduction was used. DATE OF EXAM: 06/29/2023 7:12 PM COMPARISON: Soft tissue radiograph same day. CLINICAL INDICATION:Male, 52 years old with history of left neck swelling; PHH, left sided neck swell ing and pain TECHNIQUE: Standard enhanced CT of the neck. Axial sections with coronal and sagittal reformats were obtained. Contrast used:100ml mL of Isovue 300 with IV Contrast, Oral contrast used: none. FINDINGS: Brain: Visualized portions are grossly unremarkable. Orbits: Unremarkable Sinuses: Grossly unremarkable. Spaces of the neck: There is superficial soft tissue edema identified extending from the level of the mandible on the left inferiorly to the level of the hyoid. There is associated mild asymmetric size of the left submandibular gland with prominence of the associated duct, however without definitive ca lculus present. The remainder of the spaces of the neck are symmetric. No evidence of abscess formati on. Musculoskeletal: No acute osseous pathology. Degenerative disc disease changes of the visualized spin e are present. Lymph nodes: Multiple nonenlarged lymph nodes are seen along both anterior chains of the neck. Vascular structures: Visualized major arteries are patent without evidence of aneurysm. Thoracic Inlet/airway: Airway is patent. Paraseptal and centrilobular emphysematous changes are prese nt in the lung apices. Soft tissues/Thyroid: Thyroid and remainder of the soft tissues are unremarkable. IMPRESSION Asymmetric enlarged left submandibular gland with associated soft tissue edema extending from the low er face into the neck. Findings are concerning for underlying sialadenitis with reactive changes. No evidence of abscess formation or obstructing stone.
[2023-06-29] MEDS: AMOXIC-POT CLAV 875-125MG 1 EACH TAB PO STA (20:40)
[2023-06-29 20:46] VITALS: BP 126/83; PULSE 84; RESP 18
== END 2023-06-29 20:52 | disposition home or self-care (01) ==
LOC: EC 14:48
DX: K11.20 Sialoadenitis, unspecified (principal); F17.200 Nicotine dependence, unspecified, uncomplicated; F12.90 Cannabis use, unspecified, uncomplicated
CPT/HCPCS: 36415; 87651; 80053; 85025; 70360; 70491; 99284; 96374; 96361 ×2; J1100; Q9967

== ENCOUNTER 2023-10-18 22:02 | Emergency (ER) | payer MEDICARE, OTHER ==
[~2023-10-18 22:02] MED LIST: HYDROcodone/APAP 5-325MG 1 EACH TAB ONE; KETOROLAC 15 MG/ML 1 ML VIAL ONE
--- NOTE | 2023-10-19 12:33 | XR ---
Patient: Eloy Garcia P Ordering Physician: Unknown, Unknown ID: [id number] Phone, Pager: Phone: N/A Pager: N/A : [phone] Age/Gender: 52Y, M Primary Location: N/A Procedure: Right foot Study D ate: 10/19/2023 12:33:32 AM Order #: N/A EXAMINATION TYPE: Foot X-Ray Complete Right DATE OF EXAM: 10/19/2023 CLINICAL HISTORY: Recent tapping injury with pain TECHNIQUE: Frontal, lateral, and oblique images of the right foot are obtained. COMPARISON: None FINDINGS: There is no acute fracture/dislocation evident in the right foot. The joint spaces in the right foot appear within normal limits. The overlying soft tissue appears unremarkable without radi odense foreign body identified. IMPRESSION: There is no acute fracture or dislocation in the right foot.
== END 2023-10-19 04:11 | disposition home or self-care (01) ==
LOC: EC 22:02
DX: L08.9 Local infection of the skin and subcutaneous tissue, unspecified (principal)
CPT/HCPCS: 99283

== ENCOUNTER 2024-05-07 11:27 | Observation (INO) | payer MEDICARE, OTHER ==
--- NOTE | 2024-05-07 11:43 | ED ---
General Adult HPI - General Source: patient, EMS, RN notes reviewed, old records reviewed Mode of arrival: EMS Limitations: no limitations <Jeff Bedolla - Last Filed: 05/07/24 14:02> <René Coyne - Last Filed: 05/07/24 15:18> - General Chief complaint: Psychiatric Symptoms Stated complaint: mental health Time Seen by Provider: 05/07/24 11:29 - History of Present Illness Initial comments: 53-year-old male presenting for psychiatric evaluation. Patient reports that he is depressed due to his current homeless situation. No suicidal or homicidal ideation. Patient denies drugs or alcohol. No physical complaints. Requesting EPS evaluation. (Jeff Bedolla) - Related Data Home Medications Medication Instructions Recorded Confirmed Paliperidone [Invega] 6 mg PO DAILY 05/07/24 05/07/24 Sertraline [Zoloft] 100 mg PO DAILY 05/07/24 05/07/24 Previous Rx's Medication Instructions Recorded Mirtazapine [Remeron] 15 mg PO HS 30 Days #30 tab 01/13/23 Allergies Allergy/AdvReac Type Severity Reaction Status Date / Time No Known Allergies Allergy Verified 05/07/24 14:23 Review of Systems ROS Other: All systems not noted in ROS Statement are negative. <Jeff Bedolla - Last Filed: 05/07/24 14:02> ROS Other: All systems not noted in ROS Statement are negative. <René Coyne - Last Filed: 05/07/24 15:18> ROS Statement: Those systems with pertinent positive or pertinent negative responses have been documented in the HPI. Past Medical History Past Medical History: Asthma History of Any Multi-Drug Resistant Organisms: None Reported Past Surgical History: No Surgical Hx Reported Past Psychological History: Anxiety, Depression Smoking Status: Current every day smoker Past Alcohol Use History: None Reported Past Drug Use History: Marijuana <Jeff Bedolla - Last Filed: 05/07/24 14:02> General Exam Limitations: no limitations General appearance: alert, in no apparent distress Head exam: Present: atraumatic, normocephalic ENT exam: Present: normal exam Neck exam: Present: normal inspection. Absent: tenderness, meningismus Respiratory exam: Present: normal lung sounds bilaterally. Absent: respiratory distress Cardiovascular Exam: Present: tachycardia, irregular rhythm GI/Abdominal exam: Present: soft. Absent: distended, tenderness Extremities exam: Present: pedal edema Neurological exam: Present: alert, oriented X3, motor sensory deficit (Right lower facial weakness, droop) Psychiatric exam: Present: normal affect, normal mood Skin exam: Present: warm, dry, intact <Jeff Bedolla - Last Filed: 05/07/24 14:02> Course <Jeff Bedolla - Last Filed: 05/07/24 14:02> Vital Signs 05/07/24 11:33 Temperature 98 F Pulse Rate 90 Respiratory 18 Rate Blood Pressure 134/83 O2 Sat by Pulse 98 Oximetry - Reevaluation(s) Reevaluation #1: 05/07/24 11:43 Patient cleared for EPS (Jeff Bedolla) Medical Decision Making <Jeff Bedolla - Last Filed: 05/07/24 14:02> <René Coyne - Last Filed: 05/07/24 15:18> - Medical Decision Making Was pt. sent in by a medical professional or institution (, PA, DIRECTOR VACCINE, urgent care, hospital, or longterm...) When possible be specific @ -No Did you speak to anyone other than the patient for history (EMS, parent, family, police, friend...)? What history was obtained from this source @ -No Did you review nursing and triage notes (agree or disagree)? Why? @ -I reviewed and agree with nursing and triage notes Were old charts reviewed (outside hosp., previous admission, EMS record, old EKG, old radiological studies, urgent care reports/EKG's, longterm records)? Report findings @ -No old charts were reviewed Differential Mental Health Depression, anxiety, bipolar, psychosis, schizophrenia, borderline personality, situational depression, adjustment disorder, behavioral disorder, brain tumor, malingering, substance abuse, encephalopathy, medication reaction, dementia, hypothyroidism, degenerative neurologic disorder, lupus.... This is not meant to be all-inclusive list EKG interpreted by me (3pts min.). @ -As above X-rays interpreted by me (1pt min.). @None done CT interpreted by me (1pt min.). @ -None done U/S interpreted by me (1pt. min.). @ -None done What testing was considered but not performed or refused? (CT, X-rays, U/S, labs)? Why? @ -None What meds were considered but not given or refused? Why? @ -None Did you discuss the management of the patient with other professionals (professionals i.e. , PA, DIRECTOR VACCINE, lab, RT, psych nurse, social media content manager, flyer maker, teacher, special loan officer, bottle caser)? Give summary @ -EPS evaluate the patient and will admit Was smoking cessation discussed for >3mins.? @ -No Was critical care preformed (if so, how long)? @ -No Were there social determinants of health that impacted care today? How? (Homelessness, low income, unemployed, alcoholism, drug addiction, transportation, low edu. Level, literacy, decrease access to med. care, fpc, rehab)? @ -No Was there de-escalation of care discussed even if they declined (Discuss DNR or withdrawal of care, Hospice)? DNR status @ -No What co-morbidities impacted this encounter? (DM, HTN, Smoking, COPD, CAD, Cancer, CVA, ARF, Chemo, Hep., AIDS, mental health diagnosis, sleep apnea, morbid obesity)? @ -Depression Was patient admitted / discharged? Hospital course, mention meds given and route, prescriptions, significant lab abnormalities, going to OR and other pertinent info. @53-year-old male presenting for psychiatric evaluation, depression, patient medically cleared and evaluated by EPS and will be admitted to this institution for further psychiatric care. Undiagnosed new problem with uncertain prognosis? @ -No Drug Therapy requiring intensive monitoring for toxicity (Heparin, Nitro, Insulin, Cardizem)? @ -No Were any procedures done? @ -No Diagnosis/symptom? @Depression Acute, or Chronic, or Acute on Chronic? @Acute on chronic Uncomplicated (without systemic symptoms) or Complicated (systemic symptoms)? @ -Default Side effects of treatment? @ -No Exacerbation, Progression, or Severe Exacerbation? @ -No Poses a threat to life or bodily function? How? (Chest pain, [place], [place], pneumonia, PE, COPD, DKA, ARF, appy, cholecystitis, CVA, Diverticulitis, Homicidal, Suicidal, threat to staff... and all critical care pts) @ -No (Jeff Bedolla I was notified by EPS nurse that patient is unable to be admitted to inpatient psych due to testing positive for COVID-19. Patient be admitted medically. W ith psych consult. Diagnosis/symptom? @ -Psychiatric care, coronavirus Acute, or Chronic, or Acute on Chronic? @ -Default Uncomplicated (without systemic symptoms) or Complicated (systemic symptoms)? @ -Default Side effects of treatment? @ -None Exacerbation, Progression, or Severe Exacerbation] @ -No Poses a threat to life or bodily function? @ -Yes (René Coyne) - Lab Data Lab Results 05/07/24 05/07/24 Range/Units 12:47 14:11 Urine Opiates Screen Not Detected (NotDetected) Ur Oxycodone Screen Not Detected (NotDetected) Urine Methadone Screen Not Detected (NotDetected) Ur Barbiturates Screen Not Detected (NotDetected) U Tricyclic Antidepress Not Detected (NotDetected) Ur Phencyclidine Scrn Not Detected (NotDetected) Ur Amphetamines Screen Not Detected (NotDetected) U Methamphetamines Scrn Not Detected (NotDetected) U Benzodiazepines Scrn Not Detected (NotDetected) Urine Cocaine Screen Not Detected (NotDetected) U Marijuana (THC) Screen Detected H (NotDetected) Influenza Type A (PCR) Not Detected (Not Detectd) Influenza Type B (PCR) Not Detected (Not Detectd) RSV (PCR) Not Detected (Not Detectd) SARS-CoV-2 (PCR) Detected A (Not Detectd) Disposition Is patient prescribed a controlled substance at d/c from ED?: No Time of Disposition: 14:03 <Jeff Bedolla - Last Filed: 05/07/24 14:02> <René Coyne - Last Filed: 05/07/24 15:18> Clinical Impression: Depression Disposition: ADMITTED IP TO THIS HOSP Condition: Stable Referrals: Herson Pelletier MD [Primary Care Provider] - 1-2 days
[2024-05-07 13:50] LABS: Amphetamine Screen,Urine Not Detected (NotDetected); Barbiturate Screen,Urine Not Detected (NotDetected); Benzodiazepines Screen,Urine Not Detected (NotDetected); Cocaine Screen,Urine Not Detected (NotDetected); Methadone Screen, Urine Not Detected (NotDetected); Opiate Screen,Urine Not Detected (NotDetected); Oxycodone Screen, Urine Not Detected (NotDetected); Phencyclidine Screen,Urine Not Detected (NotDetected); Tricyclic Antidepressant,Urine Not Detected (NotDetected); Urn Cannabinoid Scrn Detected (NotDetected)
[2024-05-07 15:00] LABS: Influenza A Not Detected (Not Detectd); Influenza B Not Detected (Not Detectd); RSV Not Detected (Not Detectd)
[2024-05-07] MEDS ORDERED: NALOXONE 0.4 MG/ML 1 ML VIAL IV PRN (15:19)
[2024-05-07 21:22] LABS: Appearance,Urine Clear (Clear); Bilirubin,Urine Negative (Negative); Blood,Urine Negative (Negative); Color,Urine Yellow; Glucose,Urine (UA) Negative (Negative); Ketones,Urine Negative (Negative); Leukocyte Esterase,Urine Negative (Negative); Nitrite,Urine Negative (Negative); PH, Urine 5.5 (5.0-8.0); Protein,Urine Negative (Negative); Specific Gravity,Urine 1.014 (1.001-1.035); Urobilinogen,Urine <2.0 mg/dL (<2.0)
--- NOTE | 2024-05-07 21:31 | HP ---
HISTORY AND PHYSICAL CHIEF COMPLAINT: Mental status changes and psychosis. HISTORY OF PRESENT ILLNESS: This gentleman presented to the emergency room with a plan that he be admitted to the Psych Service. He is homeless. However, he was positive for COVID-19. He was essentially asymptomatic. REVIEW OF SYSTEMS: Otherwise is unremarkable. Past medical history, family history and personal and social histories reveal that he is not allergic to any medication. It is not known if he is taking any medications now. He has been on psychiatric medicines in the past. He has been a patient of [facility]. PHYSICAL EXAMINATION: VITAL SIGNS : Normal. HEAD, EARS, EYES, NOSE, MOUTH AND THROAT: Normal. CHEST: Clear. CARDIAC: Normal. ABDOMEN: Soft, nontender. EXTREMITIES: Normal. IMPRESSION: 1. Major depression. 2. Possible psychosis. 3. COVID-19. PLAN: 1. Bed rest. 2. IV fluids. 3. Monitor for pulmonary issues or problems. 4. Consult with Psychiatry. MMDELANEY / JASS: [id number] /
[2024-05-07] MEDS: MIRTAZAPINE 15 MG TAB PO SCH (21:34)
[2024-05-08] MEDS: PALIPERIDONE 6 MG TAB.ER.24 PO SCH ×2 (09:24→20:11)
[2024-05-08] MEDS: SERTRALINE 100 MG TAB PO SCH (09:24)
[2024-05-08 11:32] VITALS: BMI 18.8
--- NOTE | 2024-05-08 13:37 | P.CN ---
Psychiatric Consult - . Consult date: 05/08/24 Consult:: 05/08/24 11:24 IDENTIFYING DATA: Patient is a 53-year-old male, lives with sister, collects disability, no kids. Reason for consultation: Psychiatric care HPI: Patient presented to the hospital initially yesterday to the ER complaining of depression and homelessness. At that time patient was not endorsing suicidal ideations. Patient's urine drug screen is positive for THC, he was about to be transferred to the mental health unit however patient was COVID-19 positive. Patient was admitted medically. Screw Supervisor spoke with patient at the bedside today after speaking with nurse. Patient was fairly calm cooperative, claims that he is tired of being homeless. Claims that he has been staying at different shelters, claims that his cell phone lost service when he was trying to come appear to stay with his uncle. Was not able to get in touch with him. Claims that he was feeling fairly ill came to the hospital for help. States that he was having a bit of shortness of breath however he is feeling a bit better today. Claims that he is having difficult time finding a place to live. He did endorse mild depression at this time, mild anxiety. Sleep has been on and off. Claims that he has not been very consistent with his medications, recently went to [facility] for follow-up. He is established with them for psychiatric care. Claims that his appetite is fair. At this time is denying any suicidal homicidal ideations intent or plan denying any auditory or visual loose nations. He was fairly pleasant, and polite during interaction. Claims that he only smokes marijuana denies any other recreational drug use. PAST PSYCHIATRIC HISTORY: Patient has a history of schizophrenia, intellectual disability, apparently he is delusional at baseline according to [facility] and previous EMR documentation. Patient currently follows up with [facility] and sees Dr. Adams, he is supposed to be on Remeron, Invega and Zoloft. Patient's last psychiatric hospitalization on the mental health unit was in 01/12. [Patient denies any historyo f suicide attempts in the past PMH:as per ER note ALLERGIES: as per EMR CHEMICAL DEPENDENCY HISTORY: as per HPI FAMILY PSYCHIATRIC/SUBSTANCE USE HISTORY: mother has dementia SOCIAL HISTORY: Patient was born and raised in [place], [place]. Lives with sister, no children. Used to work in factories and restaurants. Criminal history for sexual assault, and was incarcerated many years ago. Patient currently is homeless, staying at different shelters and family's house. He collects Social Security disability. He has no kids MENTAL STATUS EXAM: General Appearance: Patient appears to be disheveled hair, short in stature, older than stated age, is alert, directable, and attempts to cooperate. Patient appears to have poor hygiene and grooming. Behavior: Patient is seated without any agitated behavior. Attempts to cooperate, fairly timid. Speech: Patient's speech is fluent and nonpressured. Soft tone Mood/Affect: Patient reports their mood is anxious and mildly depressed, affect is congruent and constricted. Suicidality/Homicidality: Patient denies having any homicidal ideation intent or plan. Denies any suicidal ideations intent or plan Perceptions: Patient denies any visual hallucinations and denies any auditory hallucinations Though content/process: There is no evidence of any delusional thought content and thought process is linear and goal-directed. Rambles at times, vague Memory and concentration: AOX3, grossly intact for the purposes of this session. Can spell "WORLD" backwards Judgment and insight: limited IMPRESSIONS: History of schizophrenia History of depression and anxiety Intellectual disability Cannabis use disorder Nicotine dependence Homelessness PLAN: -At this time patient DOES NOT meet criteria for inpatient psychiatric admission. -Delirium precautions recommended with patient including - avoiding use of narcotics and MILL CONTROL OPERATOR sedatives, limit anticholinergic medications when possible, frequent re-orientation, minimize use of restraints, open window shades during the day and close them at night -would recommend filing/commencing guardianship due to patient having chronically limited/poor insight and having difficulties taking care of himself and also help with placement -Would recommend the following medication changes/additions: Restarted patient's home medications Invega p.o. 6 mg nightly for mood stabilization/psychosis, Remeron 15 mg nightly for mood/insomnia, Zoloft 100 mg daily for mood/anxiety -reinforcing iron and rebar workers to provide patient with outpatient mental health/psychiatry resources for appropriate follow up upon discharge. Please ensure that patient has follow-up with [facility] for outpatient mental health treatment and services. -Screw Supervisor spoke with patient about substance abuse and the harmful effects on medical and mental health, patient verbally understood and agreed. -Communicated plan to patient's nurse and social insurance adviser -patient will need assistance with placement or if he is able to stay with family/friends or assisted? -Psychiatry will sign off at this time -Please contact with any questions. 05/08/24 13:31
--- NOTE | 2024-05-08 23:47 | PN ---
PROGRESS NOTE CHIEF COMPLAINT: Depression. HISTORY OF PRESENT ILLNESS: This gentleman is doing fairly well. He is not complaining of any chest pain or shortness of breath. PHYSICAL EXAMINATION: VITAL SIGNS: Normal. CHEST: Clear. CARDIAC: Normal. IMPRESSION: 1. Major depression. 2. Homelessness. 3. COVID-19. PLAN: Continue to keep him on the medical floor until he can be transferred to the psychiatric unit. MMODL / IJN: [id number] /
[2024-05-09 01:43] VITALS: RESP 16
--- NOTE | 2024-05-10 01:25 | PN ---
PROGRESS NOTE DATE OF SERVICE: 05/09/2024 CHIEF COMPLAINT: Mental health issues and COVID. HISTORY OF PRESENT ILLNESS: This gentleman is doing well. He has been afebrile. PHYSICAL EXAMINATION: CHEST: Clear. CARDIAC: Normal. ABDOMEN: Soft, nontender. IMPRESSION: 1. COVID. 2. Depression. PLAN: Treat on the medical floor until he is cleared to go to Psychiatry. MMODL / IJN: [id number] /
[2024-05-10 08:22] VITALS: BP 101/62; PULSE 72; TEMP 97.8
--- NOTE | 2024-05-10 11:56 | DS ---
DISCHARGE SUMMARY CHIEF COMPLAINT: Agitation, schizophrenia, and COVID. HISTORY OF PRESENT ILLNESS AND PHYSICAL EXAM: Details of this man's history and physical can be found in the initial workup. LABORATORY STUDIES: While he was in the hospital, he had laboratory studies, details of which can be found in the laboratory section of his chart. COURSE IN THE HOSPITAL: After admission, he was placed on bedrest and started on intravenous fluids and kept in COVID isolation. Seen by Psychiatry. By the time he was able to go to the psych unit, psychiatrist felt it was no longer necessary. He was discharged home and will be followed up in the office. FINAL DIAGNOSES: 1. Schizophrenia. 2. COVID-19. OPERATIONS: None. CONSULTATIONS: Psychiatry. MMODL / IJN: [id number] /
== END 2024-05-10 11:49 | disposition home or self-care (01) ==
LOC: EC 11:27 → 6NMEDSUR 15:20
PROVIDERS: ADMIT Family Medicine; ATTEND Family Medicine
DX: U07.1 COVID-19 (principal); F20.9 Schizophrenia, unspecified; F32.9 Major depressive disorder, single episode, unspecified; F41.9 Anxiety disorder, unspecified; T43.02 Poisoning by, adverse effect of and underdosing of tetracyclic antidepressants; T43.596A Underdosing of other antipsychotics and neuroleptics, initial encounter; T43.226A Underdosing of selective serotonin reuptake inhibitors, initial encounter; Z91.148 Patient's other noncompliance with medication regimen for other reason; F79 Unspecified intellectual disabilities; F12.10 Cannabis abuse, uncomplicated; Z59.00 Homelessness unspecified; F17.200 Nicotine dependence, unspecified, uncomplicated; Z79.899 Other long term (current) drug therapy; Z11.52 Encounter for screening for COVID-19; Z11.59 Encounter for screening for other viral diseases; Z91.51 Personal history of suicidal behavior
CPT/HCPCS: 82075; 99285; 81003; 80306; 87636; G0378 ×4

== ENCOUNTER 2024-05-12 20:26 | Emergency (ER) | payer MEDICARE, OTHER ==
[2024-05-12 20:32] VITALS: RESP 18
--- NOTE | 2024-05-12 20:52 | ED ---
Psych HPI - General Chief Complaint: Psychiatric Symptoms Stated Complaint: Mental health Time Seen by Provider: 05/12/24 20:49 Source: patient, police, RN notes reviewed Mode of arrival: ambulatory - History of Present Illness Initial Comments: 53-year-old male presenting with [place] [employer] for feelings of hopelessness. Patient denies suicidal or homicidal ideation. States he was recently admitted to the hospital for COVID and for feelings of hopelessness and discharged 2 days ago. Patient states he struggles with homelessness and has been staying with a friend however was told that he can no longer stay with this friend. States he tried to take a nap, could not sleep, then decided to call the police department who brought him here. No medical complaints at this time. - Related Data Home Medications Medication Instructions Recorded Confirmed Paliperidone [Invega] 6 mg PO DAILY 05/07/24 05/07/24 Sertraline [Zoloft] 100 mg PO DAILY 05/07/24 05/07/24 Previous Rx's Medication Instructions Recorded Mirtazapine [Remeron] 15 mg PO HS 30 Days #30 tab 01/13/23 Allergies Allergy/AdvReac Type Severity Reaction Status Date / Time No Known Allergies Allergy Verified 05/12/24 20:28 Review of Systems ROS Statement: Those systems with pertinent positive or pertinent negative responses have been documented in the HPI. ROS Other: All systems not noted in ROS Statement are negative. Past Medical History Past Medical History: Asthma History of Any Multi-Drug Resistant Organisms: None Reported Past Surgical History: No Surgical Hx Reported Additional Past Surgical History / Comment(s): pt states he does not have asthma Past Psychological History: Anxiety, Depression Smoking Status: Former smoker Past Alcohol Use History: None Reported Past Drug Use History: Marijuana - Past Family History Father History Unknown: Yes Mother History Unknown: Yes General Exam Limitations: no limitations General appearance: alert, in no apparent distress Head exam: Present: atraumatic, normocephalic, normal inspection Eye exam: Present: normal appearance, PERRL, EOMI. Absent: scleral icterus, conjunctival injection, periorbital swelling Neurological exam: Present: alert, oriented X3 Psychiatric exam: Present: normal affect, normal mood. Absent: homicidal ideation, suicidal ideation Skin exam: Present: warm, dry, intact, normal color. Absent: rash Course Vital Signs 05/12/24 20:28 Temperature 97.5 F L Pulse Rate 107 H Respiratory 18 Rate Blood Pressure 130/79 O2 Sat by Pulse 96 Oximetry Medical Decision Making - Medical Decision Making Was pt. sent in by a medical professional or institution (, DEB, CHIEF DEPUTY COURT CLERK, urgent care, hospital, or [place] [facility] [place] facility...) When possible be specific @ -No Did you speak to anyone other than the patient for history (EMS, parent, family, police, friend...)? What history was obtained from this source @ -No Did you review nursing and triage notes (agree or disagree)? Why? @ -I reviewed and agree with nursing and triage notes Were old charts reviewed (outside hosp., previous admission, EMS record, old EKG, old radiological studies, urgent care reports/EKG's, [place] [facility] [place] records)? Report findings @ -No old charts were reviewed Differential Diagnosis (chest pain, altered mental status, abdominal pain women, abdominal pain men, vaginal bleeding, weakness, fever, dyspnea, syncope, headache, dizziness, GI bleed, back pain, seizure, CVA, palpatations, mental health, musculoskeletal)? @ -Differential Mental Health Depression, anxiety, bipolar, psychosis, schizophrenia, borderline personality, situational depression, adjustment disorder, behavioral disorder, brain tumor, malingering, substance abuse, encephalopathy, medication reaction, dementia, hypothyroidism, degenerative neurologic disorder, lupus.... This is not meant to be all-inclusive list EKG interpreted by me (3pts min.). @ -None X-rays interpreted by me (1pt min.). @ -None done CT interpreted by me (1pt min.). @ -None done U/S interpreted by me (1pt. min.). @ -None done What testing was considered but not performed or refused? (CT, X-rays, U/S, labs)? Why? @ -None What meds were considered but not given or refused? Why? @ -None Did you discuss the management of the patient with other professionals (professionals i.e. DEB Thurman, CHIEF DEPUTY COURT CLERK, lab, RT, psych nurse, social work program coordinator, scrap collector, teacher, stream control officer, social work case manager)? Give summary @ -I spoke with EPS who recommends discharge with safety plan. Was smoking cessation discussed for >3mins.? @ -No Was critical care preformed (if so, how long)? @ -No Were there social determinants of health that impacted care today? How? (Homelessness, low income, unemployed, alcoholism, drug addiction, transportation, low edu. Level, literacy, decrease access to med. care, retirement, rehab)? @ -No Was there de-escalation of care discussed even if they declined (Discuss DNR or withdrawal of care, Hospice)? DNR status @ -No What co-morbidities impacted this encounter? (DM, HTN, Smoking, COPD, CAD, Cancer, CVA, ARF, Chemo, Hep., AIDS, mental health diagnosis, sleep apnea, morbid obesity)? @ -None Was patient admitted / discharged? Hospital course, mention meds given and route, prescriptions, significant lab abnormalities, going to OR and other pertinent info. @ -Discharge. 53-year-old male presenting for feelings of hopelessness. Denies suicidal or homicidal ideation. Patient was recently admitted for similar sy mptoms and COVID-19 and discharged 2 days ago. No medical complaints at this time. Patient is medically cleared to be seen by EPS. EPS recommends discharge with safety plan. I agree with this plan. Case was discussed with my ED attending Dr. Coyne. Undiagnosed new problem with uncertain prognosis? @ -No Drug Therapy requiring intensive monitoring for toxicity (Heparin, Nitro, Insulin, Cardizem)? @ -No Were any procedures done? @ -No Diagnosis/symptom? @ -Hopelessness Acute, or Chronic, or Acute on Chronic? @ -Acute Uncomplicated (without systemic symptoms) or Complicated (systemic symptoms)? @ -Complicated Side effects of treatment? @ -No Exacerbation, Progression, or Severe Exacerbation? @ -No Poses a threat to life or bodily function? How? (Chest pain, USA, IA, pneumonia, PE, COPD, DKA, ARF, appy, cholecystitis, CVA, Diverticulitis, Homicidal, Suicidal, threat to staff... and all critical care pts) @ -Not at this time - Lab Data Lab Results 05/12/24 Range/Units 20:54 Urine Opiates Screen Not Detected (NotDetected) Ur Oxycodone Screen Not Detected (NotDetected) Urine Methadone Screen Not Detected (NotDetected) Ur Barbiturates Screen Not Detected (NotDetected) U Tricyclic Antidepress Not Detected (NotDetected) Ur Phencyclidine Scrn Not Detected (NotDetected) Ur Amphetamines Screen Not Detected (NotDetected) U Methamphetamines Scrn Not Detected (NotDetected) U Benzodiazepines Scrn Not Detected (NotDetected) Urine Cocaine Screen Not Detected (NotDetected) U Marijuana (THC) Screen Detected H (NotDetected) Disposition Clinical Impression: Hopelessness Disposition: HOME SELF-CARE Condition: Stable Additional Instructions: Please return to the Emergency Department if symptoms worsen or any other concerns. Is patient prescribed a controlled substance at d/c from ED?: No Referrals: Herson Pelletier MD [Primary Care Provider] - 1-2 days Time of Disposition: 22:37
[2024-05-12 21:45] LABS: Amphetamine Screen,Urine Not Detected (NotDetected); Barbiturate Screen,Urine Not Detected (NotDetected); Benzodiazepines Screen,Urine Not Detected (NotDetected); Cocaine Screen,Urine Not Detected (NotDetected); Methadone Screen, Urine Not Detected (NotDetected); Opiate Screen,Urine Not Detected (NotDetected); Oxycodone Screen, Urine Not Detected (NotDetected); Phencyclidine Screen,Urine Not Detected (NotDetected); Tricyclic Antidepressant,Urine Not Detected (NotDetected); Urn Cannabinoid Scrn Detected (NotDetected)
[2024-05-13 00:19] VITALS: BP 90/52; PULSE 73; TEMP 98.3
== END 2024-05-13 | disposition home or self-care (01) ==
LOC: EC 20:26
DX: R45.89 Other symptoms and signs involving emotional state (principal); Z87.891 Personal history of nicotine dependence
CPT/HCPCS: 80306; 82075; 99285